=== PATIENT | male | born 1970 ===

== ENCOUNTER → 2018-10-28 | Day surgery (SDC) | payer OTHER ==
[2018-10-27 17:38] LABS: ANION GAP 12.7 mmol/L (8-16); BLOOD UREA NITROGEN 15 mg/dL (7-26); BUN/CREATININE RATIO 17 (6-25); CALCIUM 9.2 mg/dL (8.4-10.2); CARBON DIOXIDE 22 mmol/L (22-29); CHLORIDE 107 mmol/L (98-107); CREATININE, SERUM 0.87 mg/dL (0.72-1.25); EST GLOMERULAR FILTRATION RATE > 60 ML/MIN (60-); GLUCOSE 126 mg/dL (74-118); POTASSIUM 3.7 mmol/L (3.5-5.1); SODIUM 138 mmol/L (136-145)
[~2018-10-28] MED LIST: ALLEGRA ALLERG180 MG PO; BUPIVACAINE HCL 0.5% INJ 30 ML VIAL INJ ONE; BUSPAR PO; CEFAZOLIN SOD 1 GM/NS 50ML 50 ML IV ONE; DEXAMETHASONE SOD PHOS INJ 4 MG/ML VIAL ONE; EFFEXOR XR 3737.5 MG PO; FENTANYL CITRATE/PF 100MCG/2 ML INJ ONE; GLYCOPYRROLATE INJ 1MG/ 5 ML SYR ONE; HYDROCODONE/APAP 5MG-325MG TAB ONE; HYDROMORPHONE 2MG/ML 2 MG/ML ML ONE; LIDOCAINE HCL 2% LOCAL INJ 5 ML SDV VIAL INJ ONE; LOSARTAN POTAS100 MG PO; MIDAZOLAM HCL 2 MG/2 ML VIAL ONE; MINERAL OIL STERILE 10ML VIAL ONE; MULTI-VITAMIN1 EACH PO; MUPIROCIN 2% OINT 22 GM TUBE ONE; NEOSTIGMINE 5 MG/5ML SYR ONE; ONDANSETRON HCL INJ 2MG/ML 2ML 2 MG/ML VIAL ONE; PANTOPRAZOLE SO40 MG PO; PROPOFOL IV EMULSION 10 MG/ML 20 ML VIAL ONE; ROCURONIUM BROMIDE 10 MG/ML 5ML VIAL ONE; SEVOFLURANE INHAL SOLN 250 ML PEN BTL ONE; TESTOSTERO100 MG/1 M SC; VITAMIN B COMP1 EAC1 PO
--- OUTSIDE RECORDS SUMMARY | 2018-10-28 05:09 | XMS REPORT | Clinical Summary ---
Author Author [facility] Address Unknown Phone Unavailable Care Team Providers Care Can Machine Operator Name Role Phone Torsten Wen MD PCP Allergies No Known Allergies Medications End Date Status Medication Sig Dispensed Refills Start Date Active ONETOUCH DELICA LANCETS once daily. 1 33 gauge misc 7 Active testosterone cypionate Inject 1 mL 2 mL 2 (DEPO-TESTOSTERONE) 100 (100 mg 8 mg/mL total) into injectionIndications: the shoulder, male hypogonadism thigh, or buttocks every 14 (fourteen) days for 90 days. Active fluticasone (FLONASE) 50 SHAKE LIQUID 16 mL 0 mcg/actuation nasal AND USE 1 8 sprayIndications: Acute SPRAY(50 MCG) bacterial sinusitis IN EACH NOSTRIL DAILY 02/07/2019 Active metFORMIN XR Take 2 180 tablet 3 (GLUCOPHAGE-XR) 500 mg 24 tablets 8 hr tabletIndications: (1,000 mg type 2 diabetes mellitus total) by mouth daily with breakfast. 02/07/2019 Active pantoprazole (PROTONIX) Take 1 tablet 90 tablet 3 40 MG EC (40 mg total) 8 tabletIndications: by mouth Gastroesophageal reflux daily. disease without esophagitis Active BD ULTRA-FINE KENNEDI PEN USE 100 each 0 NEEDLE 32 gauge x 5/32" DIRECTED 9 needleIndications: Uncontrolled type 2 diabetes mellitus with complication, without long-term current use of insulin ([facility]) 07/25/2019 Active losartan (COZAAR) 50 MG Take 1 tablet 90 tablet 3 tabletIndications: (50 mg total) 9 Essential hypertension by mouth daily. Active busPIRone (BUSPAR) 15 MG TK 2 TO 1 T 0 tablet PO TID PRA 9 Active venlafaxine XR TK 1 C PO D 0 (EFFEXOR-XR) 75 MG 24 hr 9 capsule Active venlafaxine XR TK 1 C PO D 0 (EFFEXOR-XR) 150 MG 24 hr 9 capsule Active QUEtiapine (SEROquel) 50 TK 1 T PO HS 0 MG tablet 9 03/01/2019 Active sildenafil (VIAGRA) 100 Take 1 tablet 30 tablet 1 MG tabletIndications: (100 mg 9 Erectile dysfunction, total) by unspecified erectile mouth daily dysfunction type as needed for erectile dysfunction for up to 180 days. 03/24/2019 Active testosterone cypionate Inject 0.5 mL 10 mL 0 (DEPOTESTOTERONE (100 mg 9 CYPIONATE) 200 mg/mL total) into injectionIndications: the shoulder, Primary hypogonadism in thigh, or male buttocks every 14 (fourteen) days for 180 days. 02/07/2018 Discontinued metFORMIN XR Take 2 180 tablet 3 (GLUCOPHAGE-XR) 500 mg 24 tablets 7 hr tabletIndications: (1,000 mg type 2 diabetes mellitus total) by mouth daily with breakfast Indications: Type 2 Diabetes Mellitus. 02/07/2018 Discontinued tadalafil (CIALIS) 10 MG Take 1 tablet 10 tablet 3 tabletIndications: (10 mg total) 7 Erectile dysfunction, by mouth unspecified erectile daily as dysfunction type needed for erectile dysfunction. 06/20/2018 Discontinued pen needle, diabetic 32 1 Syringe 100 each 3 gauge x 5/32" daily. 8 needleIndications: Uncontrolled type 2 diabetes mellitus with complication, without long-term current use of insulin (HCC) 10/31/2017 Discontinued testosterone cypionate Inject 1 mL 2 mL 0 (DEPO-TESTOSTERONE) 100 (100 mg 8 mg/mL total) into injectionIndications: the shoulder, male hypogonadism thigh, or buttocks every 14 (fourteen) days for 30 days Indications: Male Hypogonadism. 02/07/2018 Discontinued losartan (COZAAR) 50 MG Take 1 tablet 90 tablet 3 tabletIndications: (50 mg total) 8 hypertension by mouth daily. 11/28/2017 Discontinued pantoprazole (PROTONIX) TAKE 1 TABLET 90 tablet 0 40 MG EC BY MOUTH 8 tabletIndications: EVERY DAY Gastroesophageal reflux disease without esophagitis 02/07/2018 Discontinued VICTOZA 2-PHILIPPE 0.6 mg/0.1 INJECT 1.8MG 18 mL 0 mL (18 mg/3 mL) pen UNDER THE 8 injectorIndications: SKIN EVERY Uncontrolled type 2 DAY diabetes mellitus with complication, without long-term current use of insulin ([facility]) 11/07/2017 amoxicillin-pot Take 1 tablet 14 tablet 0 clavulanate (AUGMENTIN) by mouth 2 8 875-125 mg per (two) times a tabletIndications: Acute day for 7 bacterial sinusitis days. 01/24/2018 Discontinued fluticasone (CHILDREN'S 1 spray (50 16 g 2 FLONASE ALLERGY RLF) 50 mcg total) by 8 mcg/actuation nasal Each Nare sprayIndications: Acute route daily bacterial sinusitis for 90 days. 02/07/2018 Discontinued pantoprazole (PROTONIX) TAKE 1 TABLET 90 tablet 0 40 MG EC BY MOUTH 8 tabletIndications: EVERY DAY Gastroesophageal reflux disease without esophagitis 02/07/2018 Discontinued testosterone cypionate 2 (DEPOTESTOTERONE 8 CYPIONATE) 200 mg/mL injection 06/20/2018 Discontinued testosterone cypionate Inject 0.5 mL 10 mL 0 (DEPOTESTOTERONE (100 mg 8 CYPIONATE) 200 mg/mL total) into injectionIndications: the shoulder, Primary hypogonadism in thigh, or male buttocks every 14 (fourteen) days for 90 days. 07/09/2018 Discontinued sildenafil (VIAGRA) 100 Take 1 tablet 10 tablet 0 MG tabletIndications: (100 mg 8 Primary hypogonadism in total) by male mouth daily as needed for erectile dysfunction for up to 180 days. 07/25/2018 Discontinued losartan (COZAAR) 50 MG Take 1 tablet 90 tablet 3 tabletIndications: (50 mg total) 8 hypertension by mouth daily. 05/08/2018 Discontinued cephalexin (KEFLEX) 500 Take 1 42 capsule 0 MG capsuleIndications: capsule (500 8 Neck abscess mg total) by mouth 3 (three) times a day for 14 days. 07/09/2018 Discontinued omeprazole (PriLOSEC) 40 TK 1 C PO QHS 6 MG capsule 8 05/22/2018 cephalexin (KEFLEX) 500 Take 1 42 capsule 0 MG capsuleIndications: capsule (500 8 Neck abscess mg total) by mouth 3 (three) times a day for 14 days. 08/22/2018 Discontinued testosterone cypionate Inject 0.5 mL 10 mL 0 (DEPOTESTOTERONE (100 mg 9 CYPIONATE) 200 mg/mL total) into injectionIndications: the shoulder, Primary hypogonadism in thigh, or male buttocks every 14 (fourteen) days for 280 days. 07/10/2018 Discontinued sildenafil (VIAGRA) 100 Take 1 tablet 10 tablet 0 MG tabletIndications: (100 mg 9 Primary hypogonadism in total) by male mouth daily as needed for erectile dysfunction for up to 180 days. 07/11/2018 Discontinued sildenafil (VIAGRA) 100 Take 1 tablet 10 tablet 0 MG tabletIndications: (100 mg 9 Primary hypogonadism in total) by male mouth daily as needed for erectile dysfunction for up to 180 days. 07/11/2018 Discontinued sildenafil (VIAGRA) 100 Take 1 tablet 30 tablet 1 MG tabletIndications: (100 mg 9 Erectile dysfunction, total) by unspecified erectile mouth daily dysfunction type as needed for erectile dysfunction for up to 180 days. 09/02/2018 Discontinued sildenafil (VIAGRA) 100 Take 1 tablet 30 tablet 1 MG tabletIndications: (100 mg 9 Erectile dysfunction, total) by unspecified erectile mouth daily dysfunction type as needed for erectile dysfunction for up to 180 days. 09/25/2018 Discontinued clindamycin (CLEOCIN HCL) Take 1 30 capsule 0 300 MG capsule (300 9 capsuleIndications: mg total) by Hydradenitis mouth 3 (three) times a day for 10 days. 09/25/2018 Discontinued testosterone cypionate Inject 0.5 mL 10 mL 0 (DEPOTESTOTERONE (100 mg 9 CYPIONATE) 200 mg/mL total) into injectionIndications: the shoulder, Primary hypogonadism in thigh, or male buttocks every 14 (fourteen) days for 180 days. 10/05/2018 clindamycin (CLEOCIN HCL) Take 1 30 capsule 0 300 MG capsule (300 9 capsuleIndications: mg total) by Hydradenitis mouth 3 (three) times a day for 10 days. Status Hospital, Clinic, or Ordered Dose Route Frequency Start End Date Other Facility Date Administered Medication Ended triamcinolone acetonide 80 mg IM once 11/01/19 (KENALOG-40) injection 80 18 8 mgIndications: Acute bacterial sinusitis Active Problems Problem Noted Date Annual physical exam 07/09/2018 Last Assessment & Plan: 48 y.o. male who was seen today for Annual Exam Discussed CVD risk reduction through dietary interventions, appropriate physical exercise. General Precautions given: begin progressive daily aerobic exercise program, follow a low fat, low cholesterol diet, attempt to lose weight and reduce exposure to stress Depression Screening: Negative. No Follow-up needed. Alcohol Screening: Negative Neck abscess 04/24/2018 GERD (gastroesophageal reflux disease) 2017 Last Assessment & Plan: Stable. No red flags. Trial of pantoprazole, d/c famotidine Monitor response; f/u in 1 month Dyslipidemia 04/03/2017 Essential hypertension 12/06/2016 Last Assessment & Plan: Hypertension is improving with lifestyle modifications. Continue current treatment regimen. Blood pressure will be reassessed in 3 months. Lightheadedness 12/06/2016 Last Assessment & Plan: Multifactorial: weight loss, low-carb diet, heat, mild dehydration Employ adequate hydration Discontinue diuretic. Monitor FS glucose levels. Hydradenitis 11/08/2016 Last Assessment & Plan: Stable. Continue antibiotic therapy Referred to dermatology Return to clinic as needed Need for pneumococcal vaccination 11/08/2016 Primary hypogonadism in male 10/12/2016 Last Assessment & Plan: Symptoms gradually improving with treatment -continue to monitor for med s/e -repeat testosterone levels in 2-3 months. ED (erectile dysfunction) 09/27/2016 Last Assessment & Plan: Unknown etiology; r/out hypogonadism -trial of cialis and general recommendations discussed sucha as CV exercise, weigth loss and proper diabetes management rtc in 6 weeks Controlled type 2 diabetes mellitus without complication, without long-term 09/13/2016 current use of insulin Last Assessment & Plan: Diabetes is improving with treatment. Continue current treatment regimen. Reminded to bring in blood sugar diary at next visit. Dietary recommendations for ADA diet. Diabetes will be reassessed in 3 months. BMI 40.0-44.9, adult 09/13/2016 Resolved Problems Problem Noted Date Resolved Date Acute bacterial sinusitis 10/31/2017 02/09/2018 Last Assessment & Plan: Sinus pressure and pain suggestive of infection abx treatment Nasal steroid spray F/u if not imprved in 3-5 days Encounters Care Team Description Date Type Specialty Torsten Wen MD Primary hypogonadism in male; Hydradenitis 09/25/2018 Orders Only Family Medicine Nataly Campos MA 09/18/2018 Telephone Family Medicine Sammi Jeter MA Erectile dysfunction, unspecified erectile dysfunction type 09/02/2018 Orders Only Torsten Carson MD Neck abscess (Primary Dx) 08/25/2018 Office Visit Torsten Carson MD Hydradenitis 08/22/2018 Hospital Radiology Encounter Torsten Wen MD Primary hypogonadism in male 08/22/2018 Orders Only Torsten Carson MD Hydradenitis (Primary Dx) 08/21/2018 Office Visit Torsten Carson MD Essential hypertension 07/24/2018 Refill Torsten Carson MD Controlled type 2 diabetes mellitus without complication, without long-term current use of insulin (HCC) (Primary Dx); Primary hypogonadism in male; Erectile dysfunction, unspecified erectile dysfunction type 07/11/2018 Orders Only Torsten Carson MD Primary hypogonadism in male 07/10/2018 Refill Torsten Carson MD Annual physical exam (Primary Dx); Essential hypertension; Erectile dysfunction, unspecified erectile dysfunction type; Primary hypogonadism in male; Controlled type 2 diabetes mellitus without complication, without long-term current use of insulin (HCC) 07/09/2018 Office Visit Torsten Carson MD Primary hypogonadism in male; Uncontrolled type 2 diabetes mellitus with complication, without long-term current use of insulin (HCC) 06/20/2018 Refill Torsten Carson MD Hydradenitis (Primary Dx); Neck abscess 05/08/2018 Office Visit Torsten Carson MD Neck abscess (Primary Dx) 04/24/2018 Orders Only Family Medicine Torsten Wen MD Controlled type 2 diabetes mellitus without complication, without long-term current use of insulin (Primary Dx); Essential hypertension; Dyslipidemia; Primary hypogonadism in male; Gastroesophageal reflux disease without esophagitis; Erectile dysfunction, unspecified erectile dysfunction type 02/07/2018 Office Visit Family Medicine Torsten Wen MD Acute bacterial sinusitis 01/24/2018 Refill Family Medicine Torsten Wen MD Gastroesophageal reflux disease without esophagitis 11/28/2017 Refill Family Medicine Torsten Wen MD Acute bacterial sinusitis (Primary Dx); Primary hypogonadism in male; Controlled type 2 diabetes mellitus without complication, without long-term current use of insulin 10/31/2017 Office Visit Family Medicine after 10/27/2017 Immunizations Name Dates Previously Given Next Due Influenza Trivalent 2017 (Deferred: Patient Refused) Pneumococcal 11/08/2016 Polysaccharide Family History Medical History Relation Name Comments Depression Brother Diabetes Brother Diabetes Mother Relation Name Status Comments Brother Father Mother Alive Social History Date Tobacco Use Types Packs/Day Years Used Former Smoker Cigarettes Smokeless Tobacco: Former Quit: 11/28/2015 User Comments: 4 per day Alcohol Use Drinks/Week oz/Week Comments Yes social drinker Sex Assigned at Date Recorded Not on file Industry Job Start Date Occupation Not on file Not on file Not on file Travel End Travel History Travel Start No recent travel history available. Last Filed Vital Signs Time Taken Vital Sign Reading 08/25/2018 3:52 PM CDT Blood Pressure 123/87 08/25/2018 3:52 PM CDT Pulse 82 08/25/2018 3:52 PM CDT Temperature 36.8 C (98.2 F) - Respiratory Rate - 08/25/2018 3:52 PM CDT Oxygen Saturation 98% - Inhaled Oxygen - Concentration 08/25/2018 3:52 PM CDT Weight 107 kg (236 lb) 08/25/2018 3:52 PM CDT Height 162.6 cm (5' 4") 08/25/2018 3:52 PM CDT Body Mass Index 40.51 Plan of Treatment Health Maintenance Due Date Last Done Comments DIABETIC FOOT EXAM 1981 DIABETIC RETINAL EYE EXAM 07/25/2018 07/25/2016 URINE MICROALBUMIN 02/10/2019 02/10/2018, 09/13/2016, 09/13/2016 INFLUENZA VACCINE 07/09/2019 2017 Postponed from 12/25/2018 (Patient Refused) Procedures Comments Procedure Name Priority Date/Time Associated Diagnosis US SCROTAL Routine 08/22/2018 Hydradenitis 3:53 PM CDT TESTOSTERONE LEVEL, FREE Routine 07/11/2018 Primary hypogonadism in AND TOTAL, MALE 9:52 AM SCHOOL PSYCHOLOGIST male FSH AND LH Routine 07/11/2018 Primary hypogonadism in 9:52 AM SCHOOL PSYCHOLOGIST male PROSTATE SPECIFIC ANTIGEN Routine 07/11/2018 Erectile dysfunction, 9:52 AM SCHOOL PSYCHOLOGIST unspecified erectile dysfunction type URINALYSIS, AUTOMATED Routine 07/11/2018 Annual physical exam WITH MICROSCOPY 9:52 AM SCHOOL PSYCHOLOGIST THYROID STIMULATING Routine 07/11/2018 Annual physical exam HORMONE 9:52 AM SCHOOL PSYCHOLOGIST T4, FREE Routine 07/11/2018 Annual physical exam 9:52 AM SCHOOL PSYCHOLOGIST LIPID PANEL WITH REFLEX Routine 07/11/2018 Annual physical exam TO DIRECT LDL 9:52 AM SCHOOL PSYCHOLOGIST HEMOGLOBIN A1C Routine 07/11/2018 Annual physical exam 9:52 AM SCHOOL PSYCHOLOGIST Essential hypertension COMPREHENSIVE METABOLIC Routine 07/11/2018 Annual physical exam PANEL 9:52 AM SCHOOL PSYCHOLOGIST CBC WITH PLATELET AND Routine 07/11/2018 Annual physical exam DIFFERENTIAL 9:52 AM SCHOOL PSYCHOLOGIST PROSTATE SPECIFIC ANTIGEN Routine 02/10/2018 Controlled type 2 12:00 AM CDT diabetes mellitus without complication, without long-term current use of insulin Primary hypogonadism in male Erectile dysfunction, unspecified erectile dysfunction type TESTOSTERONE LEVEL, FREE Routine 02/10/2018 Controlled type 2 AND TOTAL, MALE 12:00 AM CDT diabetes mellitus without complication, without long-term current use of insulin Primary hypogonadism in male MICROALBUMIN / CREATININE Routine 02/10/2018 Controlled type 2 URINE RATIO 12:00 AM CDT diabetes mellitus without complication, without long-term current use of insulin LIPID PANEL WITH REFLEX Routine 02/10/2018 Controlled type 2 TO DIRECT LDL 12:00 AM CDT diabetes mellitus without complication, without long-term current use of insulin URINALYSIS, COMPLETE, Routine 02/10/2018 Controlled type 2 WITH REFLEX TO CULTURE 12:00 AM CDT diabetes mellitus without complication, without long-term current use of insulin HEMOGLOBIN A1C Routine 02/10/2018 Controlled type 2 12:00 AM CDT diabetes mellitus without complication, without long-term current use of insulin COMPREHENSIVE METABOLIC Routine 02/10/2018 Controlled type 2 PANEL 12:00 AM CDT diabetes mellitus without complication, without long-term current use of insulin Essential hypertension CBC WITH PLATELET AND Routine 02/10/2018 Controlled type 2 DIFFERENTIAL 12:00 AM CDT diabetes mellitus without complication, without long-term current use of insulin after 10/27/2017 Results * US Scrotal (08/22/2018 3:53 PM CDT) Specimen Narrative Performed At EXAMINATION:US SCROTAL [facility]IANT CLINICAL HISTORY:L73.2 Hidradenitis suppurativa, testicle viability COMPARISON:None. TECHNIQUE:Sonographic evaluation of the scrotum. Real-time B mode grayscale, Doppler spectral analysis and Doppler color flow imaging was used to assess testicular vasculature. FINDINGS: RIGHT HEMISCROTUM: The right testicle measures 3.2 x 2.6 x 1.7. Testicular echogenicity is normal. No intratesticular masses are identified. There is normal color and duplex Doppler flow. The right epididymis is unremarkable. Trace hydrocele. No varicocele. LEFT HEMISCROTUM: The left testicle measures 3.1 x 2.0 x 1.6. Testicular echogenicity is normal. No intratesticular masses are identified. There is normal color and duplex Doppler flow. The left epididymis is unremarkable. Trace hydrocele. No varicocele.. IMPRESSION: No significant sonographic abnormality. [id number] Procedure Note Hm Interface, Radiology Results Incoming - 08/22/2018 5:22 PM CDT EXAMINATION: US SCROTAL CLINICAL HISTORY: L73.2 Hidradenitis suppurativa, testicle viability COMPARISON: None. TECHNIQUE: Sonographic evaluation of the scrotum. Real-time B mode grayscale, Doppler spectral analysis and Doppler color flow imaging was used to assess testicular vasculature. FINDINGS: RIGHT HEMISCROTUM: The right testicle measures 3.2 x 2.6 x 1.7. Testicular echogenicity is normal. No intratesticular masses are identified. There is normal color and duplex Doppler flow. The right epididymis is unremarkable. Trace hydrocele. No varicocele. LEFT HEMISCROTUM: The left testicle measures 3.1 x 2.0 x 1.6. Testicular echogenicity is normal. No intratesticular masses are identified. There is normal color and duplex Doppler flow. The left epididymis is unremarkable. Trace hydrocele. No varicocele.. IMPRESSION: No significant sonographic abnormality. [id number] Performing Organization Address City/State/Zipcode Phone Number [facility] [address] [place] [address] * LIPID PANEL WITH REFLEX TO DIRECT LDL (07/11/2018 9:52 AM SCHOOL PSYCHOLOGIST) Only the most recent of 2 results within the time period is included. Cholesterol, 144 <200 mg/dL [facility] [place] HDL cholesterol 31 (L) >40 mg/dL [facility] [place] Triglycerides 107 <150 mg/dL [facility] [place] LDL cholesterol 93 mg/dL (calc) [facility] calculated Comment: [facility] Reference range: <100 [place] Desirable range <100 mg/dL for primary prevention; <70 mg/dL for patients with CHD or diabetic patients with > or=2 CHD risk factors. LDL-C is now calculated using the Gera-Pauline calculation, which is a validated novel method providing better accuracy than the Friedewald equation in the estimation of LDL-C. Gera VILLANUEVA et al. DILMA. 2013;310(19): 0125-2449 (http://education.Fabulyzer.Strategy Store/faq/MYC520) Cholesterol/HDL 4.6 <5.0 (calc) [facility] [place] Non-HDL 113 <130 mg/dL (calc) [facility] cholesterol Comment: [facility] For patients with diabetes [place] plus 1 major ASCVD risk factor, treating to a non-HDL-C goal of <100 mg/dL (LDL-C of <70 mg/dL) is considered a therapeutic option. Specimen Narrative Performed At FASTING:YES [facility] FASTING: YES Resulting Agency Comment Performing Organization Information: Site ID: [facility] Name: [facility] Address: [address] [place] [id number] Director: Samreen Ward Performing Organization Address [facility] Phone Number [facility] [place] [address] [place] [phone] * FSH and LH (07/11/2018 9:52 AM SCHOOL PSYCHOLOGIST) Pathologist [facility] Follicle <0.7 (L) 1.6 - 8.0 mIU/mL [facility] stimulating [facility] hormone [place] Luteinizing <0.2 (L) 1.5 - 9.3 mIU/mL [facility] hormone [facility] [place] Specimen Blood Narrative Performed At FASTING:YES [facility] FASTING: YES Resulting Agency Comment Performing Organization Information: Site ID: [facility] Name: [facility] Address: [address] [place] [id number] Director: Samreen Ward Performing Organization Address [facility] Phone Number [facility] [address] [phone] * Urinalysis, automated with microscopy (07/11/2018 9:52 AM SCHOOL PSYCHOLOGIST) Pathologist [facility] Color, UA DARK YELLOW YELLOW [facility] [place] Appearance CLEAR CLEAR [facility] [place] Specific 1.018 1.001 - 1.035 [facility] gravity, urine [facility] [place] pH, urine 5.5 5.0 - 8.0 [facility] [place] Glucose, urine NEGATIVE NEGATIVE [facility] [place] Bilirubin, UA NEGATIVE NEGATIVE [facility] [place] Ketones, UA 2+ (A) NEGATIVE [facility] [place] Occult blood, NEGATIVE NEGATIVE [facility] [place] Protein, UA TRACE (A) NEGATIVE [facility] [place] Nitrite, UA NEGATIVE NEGATIVE [facility] [place] Leukocyte NEGATIVE NEGATIVE [facility] esterase, [facility] [place] WBC, UA 0-5 < OR=5 /HPF [facility] [place] RBC, UA 0-2 < OR=2 /HPF [facility] [place] Squamous 6-10 (A) < OR=5 /HPF [facility] epithelial [facility] cells, UA [place] Bacteria, UA FEW (A) NONE SEEN /HPF [facility] [place] Hyaline casts, NONE SEEN NONE SEEN /LPF [facility] UA [facility] [place] Comment FEW MUCOUS THREADS [facility] [place] Specimen Urine Narrative Performed At FASTING:YES [facility] FASTING: YES Resulting Agency Comment Performing Organization Information: Site ID: [id number] Name: [facility] Address: [address] [place] [id number] Director: Samreen Ward Performing Organization Address City/State/Zipcode Phone Number [employer] [place] [address] [place] [phone] * CBC with platelet and differential (07/11/2018 9:52 AM SCHOOL PSYCHOLOGIST) Only the most recent of 2 results within the time period is included. WBC 9.5 3.8 - 10.8 [facility] Thousand/uL [facility] [place] RBC 5.01 4.20 - 5.80 [facility] Million/uL [facility] [place] HGB 15.5 13.2 - 17.1 g/dL [facility] [place] HCT 45.8 38.5 - 50.0 % [facility] [place] MCV 91.4 80.0 - 100.0 fL [facility] [place] MCH 30.9 27.0 - 33.0 pg [facility] [place] MCHC 33.8 32.0 - 36.0 g/dL [facility] [place] RDW 13.1 11.0 - 15.0 % [facility] [place] Platelet count 269 140 - 400 [facility] Thousand/uL [facility] [place] MPV 10.7 7.5 - 12.5 fL [facility] [place] Neutrophils, 6,888 1,500 - 7,800 [facility] absolute cells/uL [facility] [place] Lymphocytes, 1,710 850 - 3,900 cells/uL [facility] absolute [facility] [place] Monocytes, 808 200 - 950 cells/uL [facility] absolute [facility] [place] Eosinophils, 57 15 - 500 cells/uL [facility] [place] Basophils, 38 0 - 200 cells/uL [facility] [place] Neutrophils 72.5 % [facility] [place] Lymphocytes 18.0 % [facility] [place] Monocytes 8.5 % [facility] [place] Eosinophils 0.6 % [facility] [place] Basophils + RC 0.4 % [facility] [place] Specimen Blood Narrative Performed At FASTING:YES [facility] FASTING: YES Resulting Agency Comment Performing Organization Information: Site ID: [id number] Name: [facility] Address: [address] [place] [id number] Director: Samreen Ward Performing Organization Address City/State/Zipcode Phone Number [employer] [place] [address] [place] [phone] * Testosterone level, free and total, male (07/11/2018 9:52 AM SCHOOL PSYCHOLOGIST) Only the most recent of 2 results within the time period is included. Pathologist [facility] Testosterone, 373 250 - 1,100 ng/dL [facility] total, lc/ms/ms [facility] Testosterone, 79.8 35.0 - 155.0 pg/mL [facility] free Comment: DIAGNOSTICS Data from J Clin Invest WICK 1974:53:819-828 and J Clin SOTOMAYOR Endocrinol Metab 1973;36:8467-2488. Men with clinically significant hypogonadal symptoms and testosterone values repeatedly in the range of the 200-300 ng/dL or less, may benefit from testosterone treatment after adequate risk and benefits counseling. For additional information, please refer to http://education.Marketsync.Strategy Store/faq/TIJ418 (This link is being provided for informational/ educational purposes only.) This test was developed and its analytical performance characteristics have been determined by [facility]. It has not been cleared or approved by the US Food and Drug Administration. This assay has been validated pursuant to the CLIA regulations and is used for clinical purposes. Specimen Blood Narrative Performed At FASTING:YES [facility] FASTING: YES Resulting Agency Comment Performing Organization Information: Site ID: [id number] Name: [facility] Address: [id number] [place] [id number] Director: Kevin Sofia M.D., Ph.D Performing Organization Address City/[facility]/Zipcode Phone Number [facility] [address] [address] [place] * Thyroid stimulating hormone (07/11/2018 9:52 AM SCHOOL PSYCHOLOGIST) [facility] TSH 0.87 0.40 - 4.50 mIU/L [facility] Specimen Blood Narrative Performed At FASTING:YES [facility] FASTING: YES Resulting Agency Comment Performing Organization Information: Site ID: [id number] Name: [facility] Address: [address] [place] [address] Director: Samreen Ward Performing Organization Address City/[facility]/Zipcode Phone Number [facility] [place] [address] [place] [phone] * T4, free (07/11/2018 9:52 AM SCHOOL PSYCHOLOGIST) [facility] T4, free 1.4 0.8 - 1.8 ng/dL [facility] [place] Specimen Blood Narrative Performed At FASTING:YES [facility] FASTING: YES Resulting Agency Comment Performing Organization Information: Site ID: [id number] Name: [facility] Address: [address] [place] [phone] Director: Samreen Ward Performing Organization Address [facility] Phone Number [facility] [place] [phone] * Prostate specific antigen (07/11/2018 9:52 AM SCHOOL PSYCHOLOGIST) Only the most recent of 2 results within the time period is included. [facility] PSA 0.5 < OR=4.0 ng/mL [facility] Comment: DIAGNOSTICS The total PSA value from this [place] assay system is standardized against the WHO standard. The test result will be approximately 20% lower when compared to the equimolar-standardized total PSA (Nick Zoltan). Comparison of serial PSA results should be interpreted with this fact in mind. This test was performed using the Siemens chemiluminescent method. Values obtained from different assay methods cannot be used interchangeably. PSA levels, regardless of value, should not be interpreted as absolute evidence of the presence or absence of disease. Specimen Blood Narrative Performed At FASTING:YES [facility] FASTING: YES Resulting Agency Comment Performing Organization Information: Site ID: [id number] Name: [facility] Address: [address] [place] [phone] Director: Samreen Ward Performing Organization Address [facility] Cent[facility] Phone Number [facility] MARIAN[facility] [address] [phone] * Hemoglobin A1c (07/11/2018 9:52 AM SCHOOL PSYCHOLOGIST) Only the most recent of 2 results within the time period is included. [facility] Hemoglobin A1C 5.8 (H) <5.7 % of total Hgb [facility] Comment: DIAGNOSTICS For someone without known [place] diabetes, a hemoglobin A1c value between 5.7% and 6.4% is consistent with prediabetes and should be confirmed with a follow-up test. For someone with known diabetes, a value <7% indicates that their diabetes is well controlled. A1c targets should be individualized based on duration of diabetes, age, comorbid conditions, and other considerations. This assay result is consistent with an increased risk of diabetes. Currently, no consensus exists regarding use of hemoglobin A1c for diagnosis of diabetes for children. Specimen Blood Narrative Performed At FASTING:YES [facility] FASTING: YES Resulting Agency Comment Performing Organization Information: Site ID: [id number] Name: [facility] Address: [address] [place] [address] Director: Samreen Ward Performing Organization Address City/State/Zipcode Phone Number [facility] MARIAN[facility] [place] [address] [place] [address] * Comprehensive metabolic panel (07/11/2018 9:52 AM SCHOOL PSYCHOLOGIST) Only the most recent of 2 results within the time period is included. Glucose 143 (H) 65 - 99 mg/dL [facility] Comment: DIAGNOSTICS [facility] reference interval For someone without known diabetes, a glucose value >125 mg/dL indicates that they may have diabetes and this should be confirmed with a follow-up test. BUN, whole 13 7 - 25 mg/dL [facility] blood DIAGNOSTICS [place] Creatinine 0.96 0.60 - 1.35 mg/dL [facility] [place] EGFR Non-Afr. 94 > OR=60 [facility] [place] mL/min/1.73m2 DIAGNOSTICS [place] EGFR 109 > OR=60 [facility] [place] mL/min/1.73m2 [facility]AGNOSTICS [place] BUN/creatinine NOT APPLICABLE 6 - 22 (calc) [facility] ratio [facility]AG[facility]STICS [place] Sodium 138 135 - 146 mmol/L [facility] [place] Potassium 4.0 3.5 - 5.3 mmol/L [facility] [place] Chloride 105 98 - 110 mmol/L [facility] [place] CO2 23 20 - 32 mmol/L [facility] [place] Calcium 9.6 8.6 - 10.3 mg/dL [facility] [place] Protein 7.3 6.1 - 8.1 g/dL [facility] [place] Albumin, S 4.5 3.6 - 5.1 g/dL [facility] [place] Globulin, total 2.8 1.9 - 3.7 g/dL [facility] (calc) DIAGNOSTICS [place] Albumin/globuli 1.6 1.0 - 2.5 (calc) [facility] n ratio [facility]AGNOSTICS [place] Total bilirubin 0.4 0.2 - 1.2 mg/dL [facility] [place] Alkaline 84 40 - 115 U/L [facility] phosphatase [facility]AG[facility]STICS [place] AST 39 10 - 40 U/L [facility] [place] ALT 55 (H) 9 - 46 U/L [facility] [place] Specimen Blood Narrative Performed At FASTING:YES [facility] FASTING: YES Resulting Agency Comment Performing Organization Information: Site ID: [facility] Name: [facility] Address: [address] [place] [id number] Director: Samreen Ward Performing Organization Address [facility] Phone Number [place] [address] * URINALYSIS, COMPLETE, WITH REFLEX TO CULTURE (02/10/2018 12:00 AM CDT) Pathologist [facility] Color, UA DARK YELLOW YELLOW [facility] [place] Appearance CLEAR CLEAR [facility] [place] Specific 1.022 1.001 - 1.035 [facility] gravity, urine DIAGNOSTICS [place] pH, urine < OR=5.0 5.0 - 8.0 [facility] [place] Glucose, urine NEGATIVE NEGATIVE [facility] [place] Bilirubin, UA NEGATIVE NEGATIVE [facility] [place] Ketones, UA TRACE (A) NEGATIVE [facility] [place] Occult blood, NEGATIVE NEGATIVE [facility] urine [facility]AG[facility]ST[facility] [place] Protein, UA NEGATIVE NEGATIVE [facility] [place] Nitrite, UA NEGATIVE NEGATIVE [facility] [place] Leukocyte NEGATIVE NEGATIVE [facility] esterase, UA [facility] [place] WBC, UA NONE SEEN < OR=5 /HPF [facility] [place] RBC, UA 0-2 < OR=2 /HPF [facility] [place] Squamous NONE SEEN < OR=5 /HPF [facility] epithelial DIAGNOSTICS cells, UA [place] Bacteria, UA NONE SEEN NONE SEEN /HPF [facility] [place] Hyaline casts, NONE SEEN NONE SEEN /LPF [facility] UA [facility] [place] Reflex NO CULTURE INDICATED [facility] [place] Specimen Narrative Performed At FASTING:YES [facility] FASTING: YES Resulting Agency Comment Performing Organization Information: Site ID: [facility] Name: [facility] Address: [address] [place] [phone] Director: Samreen Ward Performing Organization Address City/[facility] Cent[facility] Phone Number [facility] [place] [address] [place] [phone] * Microalbumin / creatinine urine ratio (02/10/2018 12:00 AM CDT) Pathologist [facility] Creatinine, 236 20 - 320 mg/dL [facility] urine, random DIAGNOSTICS [place] Microalbumin, 2.7 See Note: mg/dL [facility] urine Comment: DIAGNOSTICS Reference Range: [place] Reference Range Not established Microalbumin/cr 11 <30 mcg/mg creat [facility] eatinine ratio Comment: DIAGNOSTICS The ADA defines abnormalities [place] in albumin excretion as follows: Category Result (mcg/mg creatinine) Normal <30 Microalbuminuria 30-299 Clinical albuminuria > EN=766 The ADA recommends that at least two of three specimens collected within a 3-6 month period be abnormal before considering a patient to be within a diagnostic category. Specimen Urine Narrative Performed At FASTING:YES [facility] FASTING: YES Resulting Agency Comment Performing Organization Information: Site ID: [id number] Name: [facility] Address: [address] [place] [id number] Director: Samreen Ward Performing Organization Address City/State/Zipcode Phone Number [facility] [place] [address] [place], [place] [phone] after 10/27/2017 Insurance Type Payer Benefit Subscriber ID Effective Phone Address Plan / Dates Group HMO/PPO [facility] xxxxxxxxx [id number] THCARE resent CHOICE/CHO ICE + Advance Directives Patient has advance care planning documents on file. For more information, baylee gilmore contact: Ryan Merchant [address] [place] [address]
[2018-10-28 10:30] VITALS: BP 122/78
--- NOTE | 2018-10-28 20:30 | Operative Report ---
DATE OF PROCEDURE: 10/28/2018 SURGEON: Gerald Morataya MD PREOPERATIVE DIAGNOSIS: Hidradenitis suppurativa, posterior neck and scalp. POSTOPERATIVE DIAGNOSIS: Hidradenitis suppurativa, posterior neck and scalp. PROCEDURE: 1. Wide excision of hidradenitis suppurativa, posterior neck and scalp. 2. Split-thickness skin grafting, 100 cm2. ANESTHESIA: General. HISTORY: The patient is a 48-year-old male who has had multiple bouts of acute purulent drainage from hidradenitis suppurativa on the posterior aspect of the neck. He has undergone multiple incision and drainage procedures. The patient presents for definitive wide local excision of the hidradenitis on the posterior aspect of the neck and scalp with resultant split-thickness skin grafting to close the wound. The risks, benefits, and alternatives of treatment were discussed with the patient and he is prepared to undergo the procedure as outlined. PROCEDURE IN DETAIL: The patient was marked preoperatively in the holding area. He was brought to the operating theater and after the induction of adequate general anesthesia, he was then placed prone on the OR table and prepped and draped in the prone position. A time-out was performed. The incisions were made through the skin and subcutaneous tissues. All bleeding was controlled using the electrocautery. Using the electrocautery, the incision was deepened through the subcutaneous tissue down to the level of the fascia of the muscle. Then, using the electrocautery, the entire infected area was removed below the level of active infection. Once the entire soft tissue had been excised, the wound bed was made hemostatic using the electrocautery. Inspection of the wound bed revealed no active infection or extension of the hidradenitis to the level of the muscular fascia. At this point, the defect was measured and it measured approximately 15 cm long by 6 cm wide. A split-thickness skin graft was then marked down on the left lateral thigh adjacent to the posterior surface. The area had been prepped and draped. It was then coated with mineral oil. Using the dermatome set for approximately 14-15 thousands of an inch thickness, the split-thickness skin graft was then harvested. He was placed in the mesher and meshed in a 1-1/2 to 1 fashion. He was placed dermis side down onto the wound on the posterior neck and secured in place using surgical clips. There was good apposition of the graft to all the contours of the wound bed and was noted to be good adherence after a few minutes. At this point, the graft after being secured with surgical clips was coated with Bactroban ointment and a large Xeroform gauze. Sterile cotton balls were then moistened and placed over the Xeroform and then using circumferentially placed 4-0 silk sutures for tie-down bolsters. The sutures were tied compressing the bolster onto the skin graft and creating good pressure over the graft onto the wound bed. The thigh was dressed with Bactroban ointment, Xeroform gauze, and a sterile dressing and then a sterile dressing was placed over the bolster on the posterior aspect of the neck. The estimated blood loss of the procedure was approximately 50 mL. The patient was made supine. He was then extubated and returned to recovery room in satisfactory condition. He was discharged with a postoperative instruction sheet as well as followup appointments. MD ELEANOR Fernandes/CASSY /[id number]
== END | disposition home or self-care (01) ==
LOC: OR 05:00
PROVIDERS: ATTEND Plastic Surgery
DX: L73.2 Hidradenitis suppurativa (principal); L02.12 Furuncle of neck; I10 Essential (primary) hypertension; E11.9 Type 2 diabetes mellitus without complications; K21.9 Gastro-esophageal reflux disease without esophagitis; N20.0 Calculus of kidney; F32.9 Major depressive disorder, single episode, unspecified; F43.10 Post-traumatic stress disorder, unspecified; F41.9 Anxiety disorder, unspecified; Z01.810 Encounter for preprocedural cardiovascular examination; Z01.812 Encounter for preprocedural laboratory examination; Z87.891 Personal history of nicotine dependence
CPT/HCPCS: 11426; 15120; 36415 ×2; 80048; 82948; 88304; 93005; J0690; J1100; J1170; J2001; J2250; J2405; J2704; J3490